=== PATIENT | female | born 1990 | race Caucasian/White ===

== ENCOUNTER 2021-05-15 05:03 | Inpatient (IN) ==
[2021-05-15] MEDS ORDERED: Metoclopramide 10 MG/2 ML VIAL IVP PRN ×2 (05:20→12:10)
[2021-05-15] MEDS ORDERED: Famotidine 20 MG/2 ML VIAL IVP PRN (05:20)
[2021-05-15] MEDS ORDERED: Naloxone 0.4 MG/ML INJ IVP PRN (05:20)
[2021-05-15] MEDS ORDERED: Azithromycin 500 MG in 0.9 % Sodium Chloride 250 ML IVPB PRN (05:20)
[2021-05-15] MEDS ORDERED: Ringers Solution, Lactated 1,000 ML IVC ONE (05:21)
[2021-05-15 06:27] LABS: Basophils % 0.3 %; Eosinophils # 0.1 K/mcL (0.0-0.6); Eosinophils % 0.9 %; Hematocrit 36.7 % (35.3-44.9); Hemoglobin 12.4 g/dL (11.5-15.4); Immature Granulocytes % 1.3 % (0-4); Lymphocytes # 1.4 K/mcL (0.6-4.6); Lymphocytes % 16.5 %; Mean Corpuscular HGB Conc 33.8 g/dL (31.6-35.5); Mean Corpuscular Hemoglobin 29.7 pg (28.0-33.3); Mean Platelet Volume 11.9 fL (9.4-12.4); Monocytes # 0.7 K/mcL (0.0-1.3); Monocytes % 8.2 %; Neutrophils # 6.3 K/mcL (1.6-8.9); Platelet Count 114 K/mcL (140-400); Red Blood Count 4.17 M/mcL (3.82-4.97); Segmented Neutrophils % 72.8 %; White Blood Count 8.7 K/mcL (4.3-11.1)
[2021-05-15 07:09] LABS: Influenza A PCR Negative (Negative); Influenza B PCR Negative (Negative); Resp. Syncytial Virus PCR Negative (Negative)
[2021-05-15] MEDS ORDERED: Ondansetron 4 MG/2 ML VIAL ONE (07:14)
[2021-05-15] MEDS ORDERED: *HR* Phenylephrine 10 MG/ML VIAL ONE (07:14)
[2021-05-15] MEDS ORDERED: ceFAZolin 3,000 MG in Water for inj. (sterile) 30 ML IVP ONE (07:15)
[2021-05-15] MEDS ORDERED: *HR* Midazolam HCl 2 MG/2 ML VIAL ONE (07:16)
[2021-05-15 07:19] LABS: SARS-CoV-2 by PCR (In House) Negative (Negative)
[2021-05-15] MEDS ORDERED: EPHEDrine 50 MG/ML VIAL ONE (07:19)
[2021-05-15] MEDS ORDERED: Ringers Solution, Lactated 1,000 ML ONE ×2 (07:20→23:55)
[2021-05-15] MEDS ORDERED: *HR* Morphine Sulfate/PF 10 MG/10 ML AMPUL ONE (07:22)
[2021-05-15] MEDS ORDERED: *HR* Oxytocin 10 UNIT/ML VIAL ONE (07:22)
[2021-05-15] MEDS ORDERED: *HR* FentaNYL (PF) 100 MCG/2 ML VIAL ONE (07:22)
[2021-05-15] MEDS ORDERED: Ketorolac 30 MG/ML VIAL ONE (07:22)
[2021-05-15] MEDS: Ringers Solution, Lactated 1,000 ML IVC SCH ×2 (07:23→23:57)
[2021-05-15] MEDS ORDERED: Methylergonovine 0.2 MG/ML AMPUL IM ONE (08:32)
[2021-05-15 11:36] LABS: Amphetamine Screen,Urine Negative ng/mL (Cutoff=1000); Barbiturate Screen,Urine Negative ng/mL (Cutoff=200); Benzodiazepines Screen,Urine Negative ng/mL (Cutoff=200); Cannabinoid Screen,Urine Negative ng/mL (Cutoff = 50); Cocaine Screen,Urine Negative ng/mL (Cutoff= 300); Opiate Screen,Urine Negative ng/mL (Cutoff=300); Phencyclidine Screen,Urine Negative ng/mL (Cutoff=25)
[2021-05-15] MEDS ORDERED: Ondansetron 4 MG/2 ML VIAL IVP PRN (12:10)
[2021-05-15] MEDS ORDERED: Rho Immune Globulin 1,500 UNIT SYRINGE IM ONE (12:10)
[2021-05-15] MEDS ORDERED: Simethicone 80 MG TAB.CHEW PO PRN (12:10)
[2021-05-15] MEDS ORDERED: Oxytocin 20 units/ LR 1000 mL 20 UNIT/1,000 ML BAG IVC SCH (12:10)
[2021-05-15] MEDS: Ibuprofen 600 MG TABLET PO SCH ×2 (15:48→23:08)
[2021-05-15] MEDS: CeFAZolin 2,000 MG/120 ML BAG IVPB SCH ×2 (15:48→23:57)
[2021-05-15] MEDS: Acetaminophen 325 MG TABLET PO SCH ×2 (15:48→23:09)
[2021-05-15] MEDS: metroNIDAZOLE 500 MG TABLET PO SCH ×2 (17:42→19:27)
[2021-05-15] MEDS: *HR* Enoxaparin 60 MG/0.6 ML SYRINGE SQ SCH (19:48)
[2021-05-15] MEDS: Famotidine 20 MG TABLET PO SCH (19:48)
[2021-05-16] MEDS: *HR* OxyCODONE Immed Rel 5 MG TABLET PO PRN ×2 (04:37→17:58)
[2021-05-16 05:25] LABS: Basophils % 0.1 %; Eosinophils % 0.4 %; Red Cell Distribution Width 14.1 % (11.5-14.5)
[2021-05-16 05:27] LABS: Hematocrit 32.4 % (35.3-44.9); Hemoglobin 10.6 g/dL (11.5-15.4); Immature Granulocytes % 0.5 % (0-4); Immature Platelets 7.9 % (1.1-6.1); Lymphocytes % 16.1 %; Mean Corpuscular HGB Conc 32.7 g/dL (31.6-35.5); Mean Corpuscular Hemoglobin 29.3 pg (28.0-33.3); Mean Corpuscular Volume 89.5 fL (83.0-100.0); Mean Platelet Volume 11.7 fL (9.4-12.4); Monocytes # 0.8 K/mcL (0.0-1.3); Monocytes % 8.5 %; Neutrophils # 7.1 K/mcL (1.6-8.9); Platelet Count 118 K/mcL (140-400); Red Blood Count 3.62 M/mcL (3.82-4.97); Segmented Neutrophils % 74.4 %; White Blood Count 9.6 K/mcL (4.3-11.1)
[2021-05-16 05:33] LABS: Lymphocytes # 1.6 K/mcL (0.6-4.6)
[2021-05-16] MEDS: valACYclovir 500 MG TABLET PO PRN (07:36)
[2021-05-16] MEDS: Ibuprofen 600 MG TABLET PO SCH ×3 (07:36→20:02)
[2021-05-16] MEDS: Prenatal Vit/FA 1 EACH TABLET PO SCH (07:36)
[2021-05-16] MEDS: metroNIDAZOLE 500 MG TABLET PO SCH ×3 (07:37→20:35)
[2021-05-16] MEDS: Famotidine 20 MG TABLET PO SCH ×2 (07:37→20:02)
[2021-05-16] MEDS: CeFAZolin 2,000 MG/120 ML BAG IVPB SCH ×2 (07:37→16:10)
[2021-05-16] MEDS: *HR* Enoxaparin 60 MG/0.6 ML SYRINGE SQ SCH ×2 (07:38→20:03)
[2021-05-16] MEDS: Acetaminophen 325 MG TABLET PO SCH ×2 (14:01→20:02)
[2021-05-17] MEDS: CeFAZolin 2,000 MG/120 ML BAG IVPB SCH (00:28)
[2021-05-17] MEDS: Ibuprofen 600 MG TABLET PO SCH ×2 (02:30→09:04)
[2021-05-17] MEDS: Acetaminophen 325 MG TABLET PO SCH ×2 (02:31→13:35)
[2021-05-17 06:36] VITALS: BP 117/72; PULSE 77; TEMP 98; O2SAT 99
[2021-05-17] MEDS: *HR* OxyCODONE Immed Rel 5 MG TABLET PO PRN (06:46)
[2021-05-17] MEDS: Prenatal Vit/FA 1 EACH TABLET PO SCH (09:04)
[2021-05-17] MEDS: valACYclovir 500 MG TABLET PO PRN (09:05)
[2021-05-17] MEDS: Famotidine 20 MG TABLET PO SCH (09:05)
[2021-05-17] MEDS: metroNIDAZOLE 500 MG TABLET PO SCH (09:05)
[2021-05-17] MEDS: *HR* Enoxaparin 60 MG/0.6 ML SYRINGE SQ SCH (09:06)
== END 2021-05-17 14:10 | disposition home or self-care (01) | DRG 798 ==
LOC: 1NENULAB 05:03 → 1NENUOBS 11:48
PROVIDERS: ADMIT Obstetrics & Gynecology; ATTEND Obstetrics & Gynecology

== ENCOUNTER 2021-06-11 09:08 | Inpatient (IN) ==
[2021-06-11] MEDS ORDERED: *HR* HYDROmorphone (PF) 1 MG/ML SYRINGE IVP ONE (10:36)
[2021-06-11] MEDS ORDERED: 0.9 % Sodium Chloride 1,000 ML IVC ONE ×2 (10:36→14:58)
[2021-06-11] MEDS ORDERED: Ketorolac 30 MG/ML VIAL IVP ONE (10:36)
[2021-06-11] MEDS ORDERED: Ondansetron 4 MG/2 ML VIAL IVP ONE (10:37)
[2021-06-11 11:08] LABS: Bacteria,Urine Few per hpf (None-Few); Bilirubin,Urine Small (Negative); Blood,Urine Trace (Negative); Clarity,Urine Clear (Clear); Color,Urine Yellow (Yellow); Glucose,Urine (UA) Normal (Normal); Ketones,Urine Negative (Negative); Leukocyte Esterase,Urine Moderate (Negative); Mucus,Urine Few per lpf (None-Few); Nitrite,Urine Negative (Negative); PH,Urine 6.5 pH Units (5.0-8.0); Protein,Urine Trace mg/dL (Neg-Trace); RBC,Urine 0-3 per hpf (0-3); Specific Gravity,Urine 1.018 (1.010-1.025); Squamous Epithelial Cell,Urine Few per hpf (None-Few)
[2021-06-11 11:22] LABS: Basophils % 0.3 %; Eosinophils # 0.1 K/mcL (0.0-0.6); Hematocrit 42.6 % (35.3-44.9); Hemoglobin 13.7 g/dL (11.5-15.4); Immature Granulocytes % 1.2 % (0-4); Lymphocytes # 0.7 K/mcL (0.6-4.6); Lymphocytes % 12.6 %; Mean Corpuscular HGB Conc 32.2 g/dL (31.6-35.5); Mean Corpuscular Hemoglobin 27.9 pg (28.0-33.3); Mean Corpuscular Volume 86.8 fL (83.0-100.0); Mean Platelet Volume 10.6 fL (9.4-12.4); Monocytes # 0.3 K/mcL (0.0-1.3); Monocytes % 5.7 %; Neutrophils # 4.6 K/mcL (1.6-8.9); Platelet Count 268 K/mcL (140-400); Red Blood Count 4.91 M/mcL (3.82-4.97); Red Cell Distribution Width 12.8 % (11.5-14.5); Segmented Neutrophils % 79.2 %; White Blood Count 5.8 K/mcL (4.3-11.1)
[2021-06-11 12:27] LABS: Alanine Aminotransferase 424 Units/L (7-52); Albumin 4.3 g/dL (3.5-5.7); Albumin/Globulin Ratio 1.5 (1.1-2.2); Alkaline Phosphatase 249 Units/L (34-104); Amylase 20 Units/L (29-103); Aspartate Amino Transferase 599 Units/L (13-39); BUN/Creatinine Ratio 9 (6-26); Bilirubin,Direct 1.2 mg/dL (0.0-0.2); Bilirubin,Indirect 0.9 mg/dL (0.0-1.0); Bilirubin,Total 2.1 mg/dL (0.3-1.0); Blood Urea Nitrogen 8 mg/dL (6-20); Calcium 9.6 mg/dL (8.6-10.3); Carbon Dioxide 26 mEq/L (23-29); Chloride 103 mEq/L (98-107); Globulin 2.9 g/dL (2.4-3.5); Glucose 107 mg/dL (70-105); Lipase 22 Units/L (11-82); Osmolality,Calculated 285 (280-300); Potassium 3.8 mEq/L (3.5-5.1); Sodium 138 mEq/L (136-145); Total Protein 7.2 g/dL (6.4-8.9); eGFR For African Americans > 60 (> 60); eGFR For Non-African Americans > 60 (> 60)
[2021-06-11] MEDS ORDERED: Isovue-370 500 ML BOTTLE IVP ONE (13:10)
[2021-06-11] MEDS ORDERED: Piperacillin/Tazobactam 3.375 GM in 0.9 % Sodium Chloride Mini Bag 100 ML IVPB ONE (14:39)
[2021-06-11] MEDS ORDERED: Naloxone 0.4 MG/ML INJ IVP PRN (14:57)
[2021-06-11] MEDS ORDERED: *HR* Heparin 5,000 UNIT/ML VIAL IVP PRN ×2 (14:59)
[2021-06-11] MEDS ORDERED: *HR* Heparin 5,000 UNIT/ML VIAL IVP ONE (14:59)
[2021-06-11] MEDS: Heparin 25,000UNIT/250ML 1/2NS 25,000 UNIT/250 ML IV.SOLN IVC SCH (15:25)
[2021-06-11 15:49] LABS: Hematocrit 38.1 % (35.3-44.9); Hemoglobin 12.6 g/dL (11.5-15.4); Mean Corpuscular HGB Conc 33.1 g/dL (31.6-35.5); Mean Corpuscular Hemoglobin 28.8 pg (28.0-33.3); Mean Corpuscular Volume 87.2 fL (83.0-100.0); Mean Platelet Volume 10.6 fL (9.4-12.4); Platelet Count 238 K/mcL (140-400); Red Blood Count 4.37 M/mcL (3.82-4.97); Red Cell Distribution Width 12.8 % (11.5-14.5); White Blood Count 4.7 K/mcL (4.3-11.1)
[2021-06-11 15:56] LABS: Heparin anti-factor XA UFH 0.1 IU/mL (0.30-0.70); INR 1.1; Prothrombin Time 12.1 Seconds (9.4-12.1)
[2021-06-11] MEDS: 0.9 % Sodium Chloride 1,000 ML IVC SCH ×2 (17:07→23:51)
[2021-06-11] MEDS: *HR* OxyCODONE/APAP 5/325 TABLET PO PRN (19:14)
[2021-06-11] MEDS: Ondansetron 4 MG/2 ML VIAL IVP PRN (23:47)
[2021-06-12] MEDS ORDERED: Famotidine 20 MG/2 ML VIAL IVP ONE (00:13)
[2021-06-12 05:06] LABS: Basophils % 0.5 %; Eosinophils # 0.3 K/mcL (0.0-0.6); Eosinophils % 4.7 %; Hematocrit 39.5 % (35.3-44.9); Hemoglobin 12.7 g/dL (11.5-15.4); Immature Granulocytes % 0.8 % (0-4); Lymphocytes # 1.5 K/mcL (0.6-4.6); Lymphocytes % 23.7 %; Mean Corpuscular HGB Conc 32.2 g/dL (31.6-35.5); Mean Platelet Volume 10.6 fL (9.4-12.4); Monocytes # 0.5 K/mcL (0.0-1.3); Monocytes % 7.6 %; Neutrophils # 3.9 K/mcL (1.6-8.9); Platelet Count 216 K/mcL (140-400); Red Blood Count 4.54 M/mcL (3.82-4.97); Segmented Neutrophils % 62.7 %; White Blood Count 6.2 K/mcL (4.3-11.1)
[2021-06-12 05:41] LABS: Alanine Aminotransferase 580 Units/L (7-52); Albumin 3.7 g/dL (3.5-5.7); Albumin/Globulin Ratio 1.6 (1.1-2.2); Alkaline Phosphatase 297 Units/L (34-104); Aspartate Amino Transferase 564 Units/L (13-39); BUN/Creatinine Ratio 8 (6-26); Bilirubin,Total 2.1 mg/dL (0.3-1.0); Blood Urea Nitrogen 6 mg/dL (6-20); Calcium 9.1 mg/dL (8.6-10.3); Carbon Dioxide 24 mEq/L (23-29); Chloride 110 mEq/L (98-107); Globulin 2.3 g/dL (2.4-3.5); Glucose 105 mg/dL (70-105); Osmolality,Calculated 288 (280-300); Phosphorous 2.9 mg/dL (2.7-4.5); Potassium 4.1 mEq/L (3.5-5.1); Sodium 140 mEq/L (136-145); eGFR For African Americans > 60 (> 60); eGFR For Non-African Americans > 60 (> 60)
[2021-06-12] MEDS: *HR* OxyCODONE/APAP 5/325 TABLET PO PRN ×3 (06:17→21:09)
[2021-06-12] MEDS: 0.9 % Sodium Chloride 1,000 ML IVC SCH ×2 (07:52→21:10)
[2021-06-12 11:27] LABS: Hepatitis B Surface Antigen Nonreactive (Nonreactive)
[2021-06-12] MEDS: Piperacillin/Tazobactam 3.375 GM in 0.9 % Sodium Chloride Mini Bag 100 ML IVPB SCH (11:27)
[2021-06-12] MEDS: Ondansetron 4 MG/2 ML VIAL IVP PRN (11:30)
[2021-06-12] MEDS: Heparin 25,000UNIT/250ML 1/2NS 25,000 UNIT/250 ML IV.SOLN IVC SCH (11:30)
[2021-06-12 11:56] LABS: Hepatitis A Antibody IgM Nonreactive (Nonreactive); Hepatitis B Core IgM Nonreactive (Nonreactive); Hepatitis C Virus Antibody Nonreactive (Nonreactive)
[2021-06-12] MEDS ORDERED: Isovue-300 50ML VIAL ONE (14:52)
[2021-06-12] MEDS ORDERED: *HR* Midazolam HCl 2 MG/2 ML VIAL ONE (14:58)
[2021-06-12] MEDS ORDERED: Lidocaine HCL 4 ML Topical Solution (Laryng-O-Jet Kit Sterile Pak) TP ONE (14:58)
[2021-06-12] MEDS ORDERED: *HR* FentaNYL (PF) 100 MCG/2 ML VIAL ONE ×2 (14:58→18:53)
[2021-06-12] MEDS ORDERED: Ondansetron 4 MG/2 ML VIAL ONE (14:58)
[2021-06-12] MEDS ORDERED: *HR* Propofol 200 MG/20 ML VIAL IVP ONE (14:58)
[2021-06-12] MEDS ORDERED: *HR* Rocuronium Bromide 50 MG/5 ML VIAL ONE (14:58)
[2021-06-12] MEDS ORDERED: Lidocaine -MPF 2% 5 ML VIAL ONE (14:58)
[2021-06-12] MEDS ORDERED: Ketorolac 30 MG/ML VIAL ONE ×2 (14:58→19:08)
[2021-06-12] MEDS ORDERED: *HR* OxyCODONE Immed Rel 5 MG TABLET PO PRN ×2 (17:04→20:39)
[2021-06-12] MEDS ORDERED: Promethazine 6.25 MG in Water for inj. (sterile) 20 ML IVPB PRN (17:04)
[2021-06-12] MEDS ORDERED: CefOXitin 2,000 MG VIAL ONE (17:15)
[2021-06-12] MEDS ORDERED: Sugammadex Sodium 200 MG/2 ML VIAL IV ONE (19:07)
[2021-06-12] MEDS: *HR* HYDROmorphone PF 0.5 MG/0.5 ML SYRINGE IVP PRN ×3 (19:56→20:17)
[2021-06-12] MEDS ORDERED: Naloxone 0.4 MG/ML INJ IVP PRN (20:39)
[2021-06-12] MEDS ORDERED: Ondansetron 4 MG/2 ML VIAL IVP PRN (20:39)
[2021-06-13] MEDS: Piperacillin/Tazobactam 3.375 GM in 0.9 % Sodium Chloride Mini Bag 100 ML IVPB SCH ×4 (00:44→16:34)
[2021-06-13] MEDS: *HR* OxyCODONE/APAP 5/325 TABLET PO PRN ×5 (00:45→20:41)
[2021-06-13 06:09] LABS: Basophils % 0.2 %; Eosinophils % 0.1 %; Hematocrit 37.6 % (35.3-44.9); Hemoglobin 12.1 g/dL (11.5-15.4); Immature Granulocytes % 0.7 % (0-4); Lymphocytes # 0.8 K/mcL (0.6-4.6); Lymphocytes % 8.7 %; Mean Corpuscular HGB Conc 32.2 g/dL (31.6-35.5); Mean Corpuscular Hemoglobin 28.6 pg (28.0-33.3); Mean Corpuscular Volume 88.9 fL (83.0-100.0); Mean Platelet Volume 10.6 fL (9.4-12.4); Monocytes # 0.4 K/mcL (0.0-1.3); Monocytes % 4.3 %; Neutrophils # 7.7 K/mcL (1.6-8.9); Platelet Count 214 K/mcL (140-400); Red Blood Count 4.23 M/mcL (3.82-4.97); Red Cell Distribution Width 13.1 % (11.5-14.5)
[2021-06-13 06:29] LABS: Alanine Aminotransferase 366 Units/L (7-52); Albumin 3.8 g/dL (3.5-5.7); Albumin/Globulin Ratio 1.7 (1.1-2.2); Alkaline Phosphatase 249 Units/L (34-104); Aspartate Amino Transferase 195 Units/L (13-39); BUN/Creatinine Ratio 5 (6-26); Bilirubin,Total 0.9 mg/dL (0.3-1.0); Blood Urea Nitrogen 4 mg/dL (6-20); Calcium 9.4 mg/dL (8.6-10.3); Carbon Dioxide 24 mEq/L (23-29); Chloride 105 mEq/L (98-107); Globulin 2.2 g/dL (2.4-3.5); Glucose 105 mg/dL (70-105); Osmolality,Calculated 285 (280-300); Potassium 4.3 mEq/L (3.5-5.1); Sodium 139 mEq/L (136-145); eGFR For African Americans > 60 (> 60); eGFR For Non-African Americans > 60 (> 60)
[2021-06-13] MEDS: 0.9 % Sodium Chloride 1,000 ML IVC SCH ×3 (06:44→11:16)
[2021-06-13] MEDS: Bisacodyl 10 MG RECTAL SUPPOSITORY RC STA ×2 (10:01→10:27)
[2021-06-13] MEDS: Sennosides/Docusate Sodium TABLET PO SCH ×2 (10:51→20:40)
[2021-06-13] MEDS ORDERED: Lidocaine -MPF 2% 5 ML VIAL ONE (14:14)
[2021-06-13] MEDS ORDERED: Lidocaine -MPF 4% 5 ML AMPUL ONE (14:14)
[2021-06-13] MEDS ORDERED: *HR* FentaNYL (PF) 100 MCG/2 ML VIAL ONE (14:14)
[2021-06-13] MEDS ORDERED: *HR* Propofol 200 MG/20 ML VIAL IVP ONE (14:14)
[2021-06-13] MEDS ORDERED: Ondansetron 4 MG/2 ML VIAL ONE (14:14)
[2021-06-13] MEDS ORDERED: Indomethacin 50 MG SUPP.RECT RC ONE (14:43)
[2021-06-13] MEDS ORDERED: Lacri-Lube 3.5 GM TUBE ONE (15:35)
[2021-06-14] MEDS: Piperacillin/Tazobactam 3.375 GM in 0.9 % Sodium Chloride Mini Bag 100 ML IVPB SCH ×2 (00:29→08:57)
[2021-06-14] MEDS: *HR* OxyCODONE/APAP 5/325 TABLET PO PRN ×2 (00:30→05:18)
[2021-06-14 03:10] LABS: Basophils % 0.3 %; Eosinophils # 0.2 K/mcL (0.0-0.6); Eosinophils % 2.6 %; Hematocrit 36.6 % (35.3-44.9); Hemoglobin 11.5 g/dL (11.5-15.4); Immature Granulocytes % 0.8 % (0-4); Lymphocytes # 1.3 K/mcL (0.6-4.6); Mean Corpuscular HGB Conc 31.4 g/dL (31.6-35.5); Mean Corpuscular Hemoglobin 27.7 pg (28.0-33.3); Mean Corpuscular Volume 88.2 fL (83.0-100.0); Mean Platelet Volume 10.6 fL (9.4-12.4); Monocytes # 0.4 K/mcL (0.0-1.3); Neutrophils # 5.5 K/mcL (1.6-8.9); Platelet Count 204 K/mcL (140-400); Red Blood Count 4.15 M/mcL (3.82-4.97); Red Cell Distribution Width 13.2 % (11.5-14.5); Segmented Neutrophils % 74.3 %; White Blood Count 7.4 K/mcL (4.3-11.1)
[2021-06-14] MEDS ORDERED: Famotidine 20 MG/2 ML VIAL IVP ONE (03:27)
[2021-06-14 03:29] LABS: Alanine Aminotransferase 225 Units/L (7-52); Albumin 3.6 g/dL (3.5-5.7); Albumin/Globulin Ratio 1.7 (1.1-2.2); Alkaline Phosphatase 195 Units/L (34-104); Aspartate Amino Transferase 73 Units/L (13-39); BUN/Creatinine Ratio 7 (6-26); Bilirubin,Total 0.7 mg/dL (0.3-1.0); Blood Urea Nitrogen 5 mg/dL (6-20); Calcium 8.9 mg/dL (8.6-10.3); Carbon Dioxide 23 mEq/L (23-29); Chloride 105 mEq/L (98-107); Globulin 2.1 g/dL (2.4-3.5); Glucose 101 mg/dL (70-105); Magnesium 1.7 mg/dL (1.6-2.6); Osmolality,Calculated 281 (280-300); Potassium 3.8 mEq/L (3.5-5.1); Sodium 137 mEq/L (136-145); Total Protein 5.7 g/dL (6.4-8.9); eGFR For African Americans > 60 (> 60); eGFR For Non-African Americans > 60 (> 60)
[2021-06-14] MEDS: 0.9 % Sodium Chloride 1,000 ML IVC SCH ×2 (05:47→08:58)
[2021-06-14 06:32] VITALS: BP 119/74; PULSE 59; TEMP 98; O2SAT 96
[2021-06-14 07:37] LABS: Lipase 39 Units/L (11-82)
[2021-06-14] MEDS: Sennosides/Docusate Sodium TABLET PO SCH (08:58)
== END 2021-06-14 10:57 | disposition home or self-care (01) | DRG 419 ==
LOC: 3BNU 09:08 → EMEROOARM 09:08 → SUATTDRO 15:00 → 3BNU 17:00
PROVIDERS: ADMIT Student in an Organized Health Care Education/Training Program; ATTEND Internal Medicine